=== PATIENT | female | born 1945 | race Caucasian/White ===

== ENCOUNTER → 2025-01-06 10:17 | Outpatient (REF) | payer OTHER, SELFPAY | LOC: RCS 10:17 | PROVIDERS: ATTENDING PHYSICIAN Nurse Practitioner; FAMILY PHYSICIAN Family Medicine | DX: R06.02 Shortness of breath (principal); I35.0 Nonrheumatic aortic (valve) stenosis | CPT/HCPCS: 93306 ==

== ENCOUNTER → 2025-07-31 07:23 | Outpatient (REF) | payer OTHER, SELFPAY | LOC: RCS 07:23 | PROVIDERS: ATTENDING PHYSICIAN Internal Medicine Cardiovascular Disease; FAMILY PHYSICIAN Family Medicine | DX: I50.22 Chronic systolic (congestive) heart failure (principal); I10 Essential (primary) hypertension; Z95.810 Presence of automatic (implantable) cardiac defibrillator; I25.10 Atherosclerotic heart disease of native coronary artery without angina pectoris; I25.5 Ischemic cardiomyopathy | CPT/HCPCS: 78452; 93017; A9500 ==

== ENCOUNTER → 2025-08-12 08:23 | Outpatient (REF) | payer OTHER, SELFPAY | LOC: RCS 08:23 | PROVIDERS: ATTENDING PHYSICIAN Internal Medicine Cardiovascular Disease; FAMILY PHYSICIAN Family Medicine | DX: I35.0 Nonrheumatic aortic (valve) stenosis (principal) | CPT/HCPCS: 93306 ==

== ENCOUNTER 2025-08-17 08:03 | Day surgery (SDC) | payer OTHER, SELFPAY ==
[2025-08-17] VITALS (13 sets, daily range): BP systolic 99–129; BP diastolic 52–84; BMI 33.5
[2025-08-17] MEDS: NSS 249 ML IV (08:30)
[2025-08-17 09:02] LABS: Glucose - Point of Care 158 mg/dl (70-99)
[2025-08-17] MEDS: LOW STRENGTH ASPIRIN 324 MG PO (09:11)
[2025-08-17] MEDS: NSS 1000 IV (11:05)
[2025-08-17 11:22] LABS: Glucose - Point of Care 156 mg/dl (70-99)
--- NOTE | 2025-08-17 23:30 | ITS.CL.CATH ---
Hall Monitor - Catheterization
Cardiac Catheterization
Procedure Report:
RIGHT AND LEFT HEART STUDY
Date of Procedure: August 17, 2025
Referring: Dr. Lovely Tom
PROCEDURES:
1. Right heart catheterization
2. Left heart catheterization with coronary and single-plane left ventriculography
INDICATION: This is an 87-year-old female with a past medical history notable for diabetes mellitus, paroxysmal atrial fibrillation, coronary artery disease with a prior history of an anterior wall myocardial infarction in 2009 with stenting of the
LAD and drug-eluting stent to a ramus intermedius and balloon angioplasty of the LAD for in-stent restenosis. She has known moderate aortic stenosis. She experienced increased exertional dyspnea and is referred for coronary angiography after a
recent stress study was notable for a large area of moderately reduced tracer uptake in the anterior wall which appears predominantly fixed with some jesica-infarct ischemia. There was a small area of mildly reduced uptake in the basal and mid septum
that improves during prone imaging. She denies any anginal symptoms but does note worsened exertional dyspnea over the preceding months
ACCESS: Right radial artery, 6 [place] sheath and right brachial vein, 5 [place] sheath
HEMODYNAMICS : mmHg
RA (m) : 10
RV (s/d) : 33/5, 10
PA (s/d, m) : 31/13, 21
PCWP (m) : 18
AO (s/d, m) : 123/54, 82
LV (s/d) : 149/8
LVEDP : 15
Estimated Manoj Cardiac Output: 4.1 L / min and Cardiac Index: 2.2 L/ min / m-2
Systemic vascular resistance: 17.6 Wood units or 1404 [id number](-5)
Pulmonary vascular resistance: 0.73 Wood units or 58.5 [id number](-5)
AORTIC VALVE: (NOTE: LVEF estimated 40% by ventriculography as below. EF by echo was 43%, and 32% on Lexiscan Myoview)
Mean Gradient: 28 mmHg
Aortic valve area: 0.75 cm2
Aortic valve area index: 0.41 cm2/m2
Stroke volume index: 32
CORONARY FINDINGS :
Dominance: Left
LEFT MAIN: Minor distal tapering
LEFT ANTERIOR DESCENDING: The LAD is moderately calcified and arises normally from the left main. There is a stent from the proximal to mid LAD spanning the origin of a small diagonal branch. There is 30% in-stent restenosis. The remainder of the
LAD has only minor luminal irregularities with no focal obstructive stenosis
RAMUS: 80% ostial stenosis and 70% stenosis in the mid ramus intermedius beyond the stent just proximal to the ramus bifurcation into larger and smaller daughter branches
CIRCUMFLEX: 60% ostial circumflex stenosis. The circumflex is a dominant vessel with minor irregularities over the remainder of its course
RIGHT CORONARY ARTERY: Small nondominant with 80% mid stenosis
VENTRICULOGRAPHY: Left ventriculography is performed in SUMNER projection. The digital single-plane left ventricular ejection fraction is visually estimated at 40% with anterolateral and apical hypokinesis
SEDATION: 40 minutes of procedural sedation was utilized. An independent medical case manager was present to assist with and help manage the patient's level of consciousness and physiologic status
RADIATION SUMMARY: Fluoro Time (min): 4.5, Dose (mGy): 356, DAP (Gy.cm2) : 24.4
CONCLUSIONS
1. Moderate to severe aortic stenosis with mild LV dysfunction and mean gradient of 28 mmHg.
2. Patent proximal LAD stent
3. Ramus intermedius has 80% ostial and 70% mid stenosis
RECOMMENDATIONS
1. I will review hemodynamic and angiographic findings with Dr. Lovely Tom. I am doubtful that ramus ostial and mid stenosis account for exertional dyspnea.
Copy to: Dr. Lovely Tom
== END 2025-08-17 14:00 | disposition home or self-care (01) ==
LOC: CATH 08:03
PROVIDERS: ATTENDING PHYSICIAN Internal Medicine Interventional Cardiology; FAMILY PHYSICIAN Family Medicine; OTHER PHYSICIAN Internal Medicine Cardiovascular Disease
DX: I25.10 Atherosclerotic heart disease of native coronary artery without angina pectoris (principal); T82.855A Stenosis of coronary artery stent, initial encounter; I35.0 Nonrheumatic aortic (valve) stenosis; I48.0 Paroxysmal atrial fibrillation; I25.2 Old myocardial infarction; I50.22 Chronic systolic (congestive) heart failure; I25.5 Ischemic cardiomyopathy; E78.5 Hyperlipidemia, unspecified; I11.0 Hypertensive heart disease with heart failure; E11.51 Type 2 diabetes mellitus with diabetic peripheral angiopathy without gangrene; I65.23 Occlusion and stenosis of bilateral carotid arteries; Y83.1 Surgical operation with implant of artificial internal device as the cause of abnormal reaction of the patient, or of later complication, without mention of misadventure at the time of the procedure; Y71.3 Surgical instruments, materials and cardiovascular devices (including sutures) associated with adverse incidents; Z79.01 Long term (current) use of anticoagulants; Z79.4 Long term (current) use of insulin; Z79.899 Other long term (current) drug therapy; Z95.810 Presence of automatic (implantable) cardiac defibrillator
CPT/HCPCS: 82962; 93460; 99152; 99153; C1769; C1894; Q9967